=== PATIENT | female | born 1995 | race Caucasian/White ===

== ENCOUNTER 2021-09-25 12:05 | Emergency (ER) | payer MEDICAID, OTHER ==
[~2021-09-25] VITALS: Ht 175.3 cm; Wt 68.0 kg
[2021-09-25 12:45] VITALS: BP 113/91
[2021-09-25] MEDS ORDERED: TETanus/Pertussis (Acell)/Diphther VAC/PF (Tdap-Adult) 0.5ml syringe IMVAC ONE (14:55)
[2021-09-25] MEDS ORDERED: LIDOcaine 1% 30ml preserv. free vial IJ ONE (14:55)
[2021-09-25] MEDS ORDERED: CEPH-585 PO (15:54)
== END 2021-09-25 16:14 | disposition home or self-care (01) ==
LOC: ER 12:05
DX: S66.520A Laceration of intrinsic muscle, fascia and tendon of right index finger at wrist and hand level, initial encounter (principal); Z88.8 Allergy status to other drugs, medicaments and biological substances; Z79.2 Long term (current) use of antibiotics; W25.XXXA Contact with sharp glass, initial encounter; Y93.H9 Activity, other involving exterior property and land maintenance, building and construction; Y92.89 Other specified places as the place of occurrence of the external cause; Y99.8 Other external cause status
CPT/HCPCS: 12002; 73140; 90471; 90715; 99283